=== PATIENT | female | born 1950 | race Caucasian/White ===

== ENCOUNTER 2021-03-21 11:56 | Emergency (ER) | payer MEDICARE, BC ==
[~2021-03-21] VITALS: Ht 162.6 cm; Wt 54.8 kg
[~2021-03-21 11:56] MED LIST: ALPR-623 PO; ANAS1TAB PO; ASCO500C18 PO; CALC-1051 PO; CHOL10002 PO; CITA20TA19 PO; CYAN500T71 PO; DICL25CA4 PO; DOCU100C40 PO; DOXE50CA4 PO; FERR325T28 PO; FURO20TA4 PO; HYDR-4353 PO; LEVO112T5 PO; LISI10TA27 PO; MULT-933 PO; OMEP-271 PO; OXYB5TAB16 PO; POTA-82 PO; PSYL1CAP3 PO; PYRI-3 PO; TIZA2CAP7 PO
[2021-03-21 12:11] VITALS: BP 121/74
== END 2021-03-21 13:22 | disposition home or self-care (01) ==
LOC: ER 11:57
DX: M25.512 Pain in left shoulder (principal); Z79.899 Other long term (current) drug therapy
CPT/HCPCS: 73030; 99283